=== PATIENT | male | born 1985 | race Asian ===

== ENCOUNTER 2024-07-20 08:22 | Outpatient (CLI) | payer OTHER | END 2024-07-21 08:23 | disposition home or self-care (01) | LOC: CSHSLEEP 08:22 | PROVIDERS: ATTEND Internal Medicine Critical Care Medicine | DX: G47.33 Obstructive sleep apnea (adult) (pediatric) (principal); E11.9 Type 2 diabetes mellitus without complications; R06.83 Snoring | CPT/HCPCS: 95800 ==